=== PATIENT | female | born 1985 | race Caucasian/White ===

== ENCOUNTER → 2016-11-06 | Outpatient (CLI) | payer OTHER ==
[~2016-11-06] MED LIST: MOTRIN 800800 MG/TAB PO; PERCOCET 325 MG1 TA2 PO; PRENATABS FA1 TAB PO
== END ==
LOC: COL.RAD 08:10
DX: G93.89 Other specified disorders of brain (principal)
CPT/HCPCS: A9585

== ENCOUNTER → 2016-12-26 | Outpatient (CLI) | payer OTHER | LOC: COL.RAD 08:57 | DX: D49.2 Neoplasm of unspecified behavior of bone, soft tissue, and skin (principal) | CPT/HCPCS: A9503 ==